=== PATIENT | female | born 1990 | race Caucasian/White ===

== ENCOUNTER 2018-11-09 13:46 | Emergency (ER) | payer MEDICAID ==
[~2018-11-09] VITALS: Ht 170.2 cm; Wt 92.1 kg
[~2018-11-09 13:46] MED LIST: ALBU0.63 NEB; LAMO300T PO; LUVOX PO; No meds per pt.
[2018-11-09 13:47] VITALS: BP 123/86
--- NOTE | 2018-11-09 14:14 | NUR ---
ERP TO THE BS AT THIS TIME PT AO4 TALKING IN COMPLETE FULL SENTENCES WO DISTRESS
[2018-11-09] MEDS ORDERED: ONDANSETRON ODT 4 MG ONE (14:24)
[2018-11-09] MEDS ORDERED: ACETAMINOPHEN 500 MG TABLET ONE (14:24)
[2018-11-09] MEDS ORDERED: ONDANSETRON ODT 4 MG PO ONE (14:30)
[2018-11-09] MEDS ORDERED: ACETAMINOPHEN 1,000 MG/100 ML IV IVPB ONE (14:30)
[2018-11-09 14:37] LABS: RAPID INFLUENZA A Negative (Negative); RAPID INFLUENZA B Negative (Negative)
[2018-11-09] MEDS ORDERED: ACETAMINOPHEN 500 MG TABLET PO ONE (15:00)
== END 2018-11-09 16:37 | disposition home or self-care (01) ==
LOC: ED 16:19
DX: B34.9 Viral infection, unspecified (principal); R50.81 Fever presenting with conditions classified elsewhere; F31.9 Bipolar disorder, unspecified; J45.909 Unspecified asthma, uncomplicated; R07.89 Other chest pain; Z87.19 Personal history of other diseases of the digestive system; Z98.51 Tubal ligation status
CPT/HCPCS: 71046; 87400; 93005; 99284; Q0162

== ENCOUNTER 2019-08-07 17:00 | Emergency (ER) | payer MEDICAID ==
[~2019-08-07] VITALS: Ht 170.2 cm; Wt 89.4 kg
[2019-08-07] MEDS ORDERED: OXYMETAZOLINE NASAL SPRAY 0.05%,30ML ONE (17:53)
[2019-08-07] MEDS ORDERED: OXYMETAZOLINE NASAL SPRAY 0.05%, 15ML NAS ONE (18:00)
--- NOTE | 2019-08-07 18:04 | NUR ---
NASAL PACKING WITH AFRIN SPRAY INSERTED BY ERP. PT TOLERATED WELL, WILL RE-ASSESS.
[2019-08-07] MEDS ORDERED: TRANEXAMIC ACID 100 MG/ML, 10ML ONE (18:13)
--- NOTE | 2019-08-07 18:15 | NUR ---
ERP AT BS TO APPLY TXA. Addendum: 08/07/19 at 1824 by HBENSON AND PACKING.
[2019-08-07] MEDS ORDERED: HYDROmorphone 1 MG/ML, 1ML VIAL IM ONE (18:30)
[2019-08-07] MEDS ORDERED: TRANEXAMIC ACID 100 MG/ML, 10ML TP ONE (18:30)
[2019-08-07] MEDS ORDERED: HYDROmorphone 1 MG/ML, 1ML VIAL ONE (18:32)
--- NOTE | 2019-08-07 18:46 | NUR ---
PT MEDICATED WITH DILAUDID PER ORDERS FOR NASAL/FACIAL PAIN. LABS DRAWN, RV'WD POC WITH PT.
[2019-08-07 18:49] LABS: BASOPHILS # (AUTO) 0.06 x10^3/uL (0-0.1); BASOPHILS % (AUTO) 1 % (0-1); EOSINOPHILS # (AUTO) 0.17 x10^3/uL (0-0.4); EOSINOPHILS % (AUTO) 2 % (1-7); LYMPHOCYTES # (AUTO) 2.08 x10^3/uL (1-3.4); LYMPHOCYTES % (AUTO) 24 % (22-44); MD NO; MEAN CORPUSCULAR HEMOGLOBIN 25.7 pg (27.0-34.8); MEAN CORPUSCULAR HGB CONC 32.1 g/dL (32.4-35.8); MEAN CORPUSCULAR VOLUME 80.2 fL (80-100); MEAN PLATELET VOLUME 7.8 fL (7.4-10.4); MONOCYTES # (AUTO) 0.42 x10^3/uL (0.2-0.8); MONOCYTES % (AUTO) 5 % (2-9); NEUTROPHILS # (AUTO) 5.94 x10^3/uL (1.8-6.8); NEUTROPHILS % (AUTO) 69 % (42-75); PLATELET COUNT 205 x10^3/uL (130-400); RED BLOOD COUNT 4.71 x10^6/uL (3.82-5.3); RED CELL DISTRIBUTION WIDTH 15.3 % (9.6-15.2)
[2019-08-07 18:56] LABS: INTERNATIONAL NORMALIZED RATIO 0.97 (0.93-1.1); PROTHROMBIN TIME 10.2 Seconds (9.6-11.5)
[2019-08-07 18:58] LABS: ALANINE AMINOTRANSFERASE 20 U/L (12-78); ALBUMIN 3.8 g/dL (3.4-5.0); ANION GAP 5 mmol/L (5-15); CALCIUM 8.8 mg/dL (8.5-10.1); CHLORIDE 109 mmol/L (98-107); CREATININE 0.73 mg/dL (0.55-1.02)
[2019-08-07 19:00] LABS: ALKALINE PHOSPHATASE 58 U/L (45-117); BILIRUBIN,TOTAL 0.3 mg/dL (0.2-1.0); TOTAL PROTEIN 7.8 g/dL (6.4-8.2)
--- NOTE | 2019-08-07 19:22 | NUR ---
PT REPORTED FEELING FAINT. DECLINES RECLINING IN CHAIR. DECLINES MOVING TO A DIFFERENT ROOM WITH GURNEY. BAKERS AT THIS TIME. AWATING COAG STUDIES. CRACKERS AND JUICE PROVIDED TO PT. CALL LIGHT IN REACH. Addendum: 08/07/19 at 1924 by CATHYON ERP UPDATED ON PT STATUS.
--- NOTE | 2019-08-07 19:34 | NUR ---
ERP WAS AT BS FOR RECHECK.
[2019-08-07 19:45] VITALS: BP 109/74
--- NOTE | 2019-08-07 19:50 | NUR ---
D/C INSTRUCTIONS, MEDS & F/U APPT RV'WD WITH PT, SHE VERBALIZES UNDERSTANDING. RX GIVEN X1. INSTRUCTED PT TO HAVE NASAL PACKING REMOVED AT ENT F/U APPT WITHIN 3-5 DAYS, PER ERP. PT AMBULATED OUT OF ED WITHOUT DIFFICULTY, STATES A FRIEND WILL PICK HER UP.
[2019-08-08] MEDS ORDERED: iron PO (10:29)
== END 2019-08-07 19:54 | disposition home or self-care (01) ==
LOC: ED 17:44
DX: R04.0 Epistaxis (principal); J45.909 Unspecified asthma, uncomplicated
CPT/HCPCS: 30901; 36415; 80053; 85025; 85610; 85730; 96372; 99284; J1170

== ENCOUNTER 2020-05-09 11:15 | Emergency (ER) | payer MEDICAID ==
[~2020-05-09] VITALS: Ht 170.2 cm; Wt 95.4 kg
[~2020-05-09 11:15] MED LIST changes: +iron PO
--- NOTE | 2020-05-09 11:38 | NUR ---
ASSUMED CARE OF PT AT THIS TIME FROM LOBBY. DR. RAND AT BEDSIDE FOR EVALUATION. 30 Y/O F PRESENTS STATING "REALLY BAD SHOOTING STABBING PAIN IN LOWER ABD, SAW MY OBGYN CHAD JACOB YESTERDAY, SHE TRIED TO REMOVE SUTURES, GUESS THEY ARE NOT DISSOLVING FROM MY HYSTERECTOMY ON January, SHE COULD FEEL THEM BUT COULDN'T GET THEM, THEY USED SILVER NITRATE STICKS, I WAS FINE BUT THEN WOKE UP IN MIDDLE OF NIGHT WITH STABBING PAINS. I WENT TO OBGYN BECAUSE I WAS HAVING PAIN WITH SEX AND THAT'S WHEN SHE REALIZED SUTURES STILL THERE." BLQ ABD/PELVIS TENDER TO PALP. DENIES URINARY PAIN OR DIFFICUTLY. RATES PAIN 7/10 IN ABD. CONT PULSE OX, BP MONITORS APPLIED. VSS. CALL LIGHT IN REACH. FALL PRECUATIONS IN PLACE. SIDE RAILS UPX2. A&OX4.
--- NOTE | 2020-05-09 11:47 | NUR ---
PT AMBUALTORY TO RESTROOM WITH STEADY GAIT, CLEAN CATCH UA COLLECTED AND SENT TO LAB. PELVIC EXAM SET UP PER PROVIDER REQUEST. PT TO US AT THIS TIME.
--- NOTE | 2020-05-09 12:12 | NUR ---
PT REMAINS IN US
[2020-05-09 12:13] LABS: MICROSCOPIC AUTO
[2020-05-09] MEDS ORDERED: HYDROcodone/APAP 5/325 TABLET PO ONE (12:30)
--- NOTE | 2020-05-09 12:30 | NUR ---
PT BACK FROM US. LAURA SCHOFIELD AT BEDSIDE FOR PELVIC EXAM. PT REPORTS 03/09 ABD/PELVIC PAIN. REQUESTING PAIN MEDICATIONS. DISCUSSED WITH LAURA SCHOFIELD AND DR. RAND, AWAITING ORDERS. VSS. CALL LIGHT IN REACH. FALL PRECAUTIONS IN PLACE
[2020-05-09 12:54] LABS: CLUE CELLS NONE SEEN (NONE SEEN); WET PREP WBCS FEW (FEW)
[2020-05-09] MEDS ORDERED: HYDROcodone/APAP 5/325 TABLET ONE (12:57)
--- NOTE | 2020-05-09 13:02 | NUR ---
PT AMBULATED TO RESTROOM WITH STEADY GAIT. RESTING IN POSITION OF COMFORT. MEDICATED NOTED PER EMAR AND ERP FOR 7-8/10 ABD/PELVIS PAIN. DR. RAND AT BEDSIDE DISCUSSING POC WITH PT AND DISCHARGE INSTRUCTIONS/FOLLOW UP. CALL LIGHT IN REACH. FALL PRECAUTIONS IN PLACE.
[2020-05-09 13:17] VITALS: BP 124/74
== END 2020-05-09 13:21 | disposition home or self-care (01) ==
LOC: ED 12:23
DX: R10.2 Pelvic and perineal pain (principal); Z90.710 Acquired absence of both cervix and uterus
CPT/HCPCS: 76830; 81001; 87086; 87210; 87808; 99285

== ENCOUNTER 2020-08-09 20:31 | Emergency (ER) | payer MEDICAID ==
[~2020-08-09] VITALS: Ht 167.6 cm; Wt 96.0 kg
[2020-08-09 23:29] LABS: ALBUMIN 3.8 g/dL (3.4-5.0); ANION GAP 4 mmol/L (5-15); CALCIUM 8.9 mg/dL (8.5-10.1); CHLORIDE 109 mmol/L (98-107)
[2020-08-09 23:35] LABS: CREATININE 0.73 mg/dL (0.55-1.02)
[2020-08-09 23:45] LABS: BASOPHILS % (AUTO) 1 % (0-1); EOSINOPHILS % (AUTO) 1 % (1-7); LYMPHOCYTES % (AUTO) 28 % (22-44); MEAN CORPUSCULAR HEMOGLOBIN 25.1 pg (27.0-34.8); MEAN CORPUSCULAR HGB CONC 32.7 g/dL (32.4-35.8); MEAN PLATELET VOLUME 7.8 fL (7.4-10.4); MONOCYTES % (AUTO) 8 % (2-9); NEUTROPHILS % (AUTO) 62 % (42-75); PLATELET COUNT 201 x10^3/uL (130-400); RED BLOOD COUNT 4.79 x10^6/uL (3.82-5.3); RED CELL DISTRIBUTION WIDTH 16.5 % (9.6-15.2)
[2020-08-09 23:57] LABS: MD NO
[2020-08-10 00:05] LABS: MICROSCOPIC NOT IND
[2020-08-10 00:56] VITALS: BP 126/84
== END 2020-08-10 00:58 | disposition home or self-care (01) ==
LOC: ED 08-10 00:45
DX: N20.0 Calculus of kidney (principal); R31.0 Gross hematuria; R30.0 Dysuria; J45.909 Unspecified asthma, uncomplicated; Z98.51 Tubal ligation status
CPT/HCPCS: 36415; 74176; 80048; 81003; 82040; 84703; 85025; 99284

== ENCOUNTER 2020-10-29 18:47 | Emergency (ER) | payer MEDICAID ==
[~2020-10-29] VITALS: Ht 172.7 cm; Wt 96.3 kg
--- NOTE | 2020-10-29 19:09 | NUR ---
Pt reports burning with urination and bilateral flank pain.
[2020-10-29] MEDS ORDERED: MORPHINE SULFATE 4 MG/ML, 1ML IVPush PRN (19:30)
[2020-10-29] MEDS ORDERED: ONDANSETRON 2MG/ML, 2ML IVPush ONE (19:30)
[2020-10-29] MEDS ORDERED: MORPHINE SULFATE 4 MG/ML, 1ML ONE (19:54)
[2020-10-29] MEDS ORDERED: ONDANSETRON 2MG/ML, 2ML ONE (19:54)
[2020-10-29 20:02] LABS: BASOPHILS % (AUTO) 1 % (0-1); EOSINOPHILS % (AUTO) 1 % (1-7); LYMPHOCYTES % (AUTO) 20 % (22-44); MEAN CORPUSCULAR HEMOGLOBIN 26.4 pg (27.0-34.8); MEAN PLATELET VOLUME 7.7 fL (7.4-10.4); MONOCYTES % (AUTO) 7 % (2-9); NEUTROPHILS % (AUTO) 72 % (42-75); PLATELET COUNT 209 x10^3/uL (130-400); RED BLOOD COUNT 4.92 x10^6/uL (3.82-5.3); RED CELL DISTRIBUTION WIDTH 14.8 % (9.6-15.2)
[2020-10-29 20:03] LABS: ALBUMIN 3.9 g/dL (3.4-5.0); ANION GAP 6 mmol/L (5-15); CALCIUM 8.9 mg/dL (8.5-10.1); CHLORIDE 110 mmol/L (98-107); CREATININE 0.79 mg/dL (0.55-1.02)
[2020-10-29 20:05] LABS: MD NO
--- NOTE | 2020-10-29 20:08 | NUR ---
UA collected and sent to lab
--- NOTE | 2020-10-29 20:24 | NUR ---
2 IV start attempts by this RN, failed, veins blew. 24 gauge IV started by MARCO Bolden. Medicated per eMAR. Pt to XR.
[2020-10-29 20:53] LABS: MICROSCOPIC INDICATED
--- NOTE | 2020-10-29 21:07 | NUR ---
US at bedside.
--- NOTE | 2020-10-29 21:32 | NUR ---
Pt calm, talking on phone with family, reports she feels much better after she got the meds.
--- NOTE | 2020-10-29 22:21 | NUR ---
BREAK RN: DR. GILLIS AT TO DISCUSS ED FINDINGS AND POC WITH PT.
[2020-10-29 22:38] VITALS: BP 102/63
--- NOTE | 2020-10-29 23:01 | NUR ---
IV removed, catheter intact, hemostasis achieved, dressing applied.
== END 2020-10-29 23:03 | disposition home or self-care (01) ==
LOC: ED 22:42
DX: N20.0 Calculus of kidney (principal); M54.5 Low back pain
CPT/HCPCS: 36415; 74018; 76770; 80048; 81001; 82040; 84703; 85025; 96374; 96375; 99285; J2270; J2405

== ENCOUNTER 2021-04-03 09:09 | Outpatient (CLI) | payer MEDICAID ==
[2021-04-03] MEDS ORDERED: OMNIPAQUE 350 MG/ML, 150 ML BOTTLE ONE (13:59)
== END 2021-04-03 23:59 | disposition home or self-care (01) ==
LOC: CFH 09:09
PROVIDERS: ATTEND Physician Assistant
DX: R16.1 Splenomegaly, not elsewhere classified (principal); R31.0 Gross hematuria
CPT/HCPCS: 74178; Q9967

== ENCOUNTER 2021-04-21 23:29 | Emergency (ER) | payer MEDICAID ==
[~2021-04-21] VITALS: Ht 170.2 cm; Wt 98.0 kg
[2021-04-22 01:42] LABS: BASOPHILS % (AUTO) 1 % (0-1); EOSINOPHILS % (AUTO) 1 % (1-7); LYMPHOCYTES % (AUTO) 15 % (22-44); MEAN CORPUSCULAR HEMOGLOBIN 27.7 pg (27.0-34.8); MEAN CORPUSCULAR HGB CONC 33.8 g/dL (32.4-35.8); MEAN PLATELET VOLUME 7.6 fL (7.4-10.4); MONOCYTES % (AUTO) 7 % (2-9); NEUTROPHILS % (AUTO) 77 % (42-75); PLATELET COUNT 191 x10^3/uL (130-400); RED BLOOD COUNT 4.93 x10^6/uL (3.82-5.3); RED CELL DISTRIBUTION WIDTH 14.1 % (9.6-15.2)
[2021-04-22 01:43] LABS: ANION GAP 5 mmol/L (5-15); CALCIUM 9.1 mg/dL (8.5-10.1); CHLORIDE 106 mmol/L (98-107); CREATININE 0.82 mg/dL (0.55-1.02)
[2021-04-22 01:44] LABS: MICROSCOPIC INDICATED
--- NOTE | 2021-04-22 02:06 | NUR ---
PT C/O LEFT HIP PAIN THAT RADIATES TO HER LOOWER BACK DENIES FEVER/CHILLS, BURNING WHEN URINATING, LIFTING HEAVY OBJECTS ATTACHED TO MONITORS, VSS, NADN. BED IN LOW, RAILS ENGAGED, CALL LIGHT ON LPA ERMD AT BEDSIDE FOR EVAL
[2021-04-22 02:09] VITALS: BP 154/92
[2021-04-22] MEDS ORDERED: ACETAMINOPHEN 500 MG TABLET ONE (02:15)
[2021-04-22] MEDS ORDERED: CEFDINIR 300 MG CAPSULE ONE (02:15)
[2021-04-22] MEDS ORDERED: CEFDINIR 300 MG CAPSULE PO ONE (02:30)
[2021-04-22] MEDS ORDERED: ACETAMINOPHEN 500 MG TABLET PO ONE (02:30)
--- NOTE | 2021-04-22 02:40 | NUR ---
Patient/Caregiver given discharge instructions and they have confirmed that they understand the instructions. Patient ambulatory with steady gait. NAD, all questions answered appropriately, denies additional needs at this time. No personal belongings left in room after discharge.
== END 2021-04-22 02:41 | disposition home or self-care (01) ==
LOC: ED 04-22 02:00
DX: N30.00 Acute cystitis without hematuria (principal); R10.32 Left lower quadrant pain; J45.909 Unspecified asthma, uncomplicated
CPT/HCPCS: 36415; 80048; 81001; 84703; 85025; 87086; 99283